=== PATIENT | male | born 1940 | race Caucasian/White ===

== ENCOUNTER → 2017-04-28 | Outpatient (CLI) | payer MEDICARE ==
--- NOTE | 2017-04-28 18:43 | PCVCIMAG ---
APPROVED REPORT Exam: Stress Echocardiogram Indication: Atrial Fibrillation, Hypertension, assess functional capacity Patient Location: Echo lab Stress Nurse: Gemma Arboleda RN Status: routine Ht: 6 ft 0 in HR: 103 bpm BP: 122/84 mmHg Rhythm: Atrial Fibrillation Procedure The patient underwent an Exercise Stress Test using the Alonzo Protocol. Blood pressure, heart rate, and EKG were monitored. An Echocardiogram was performed by slot technician in four stages in quad fashion. At peak stress, four selected images were obtained and placed side by side with resting images for comparison. Stress Test Details Stress Test: Exercise stress testing was performed using a Alonzo protocol. HR Resting HR: 103 bpmMax Heart Rate (APMHR): 145 bpm Max HR Achieved: 187 bpmTarget HR (85% APMHR): 123 bpm % of APMHR: 128 Recovery HR: 110 bpm HR response to stress: Normal HR response to stress BP Resting BP: 122/84 mmHg Max BP: 146/68 mmHg Recovery BP: 124/68 mmHg ECG Resting ECG: Atrial Fibrillation Stress ECG: Atrial Fibrillation ST Change: Normal Arrhythmia: Atrial fibrillation Recovery ECG: Atrial Fibrillation Recovery ST Change: Normal Recovery Arrhythmia: Atrial Fibrillation Clinical Reason for Termination: Maximal effort Exercise duration: 8 min 10 sec Highest Stage Achieved: Stage 3: 3.4 mph at 14% grade. Exercise capacity: 10.1 METs Overall Exercise Capacity for Age: Good Pre-Stress Echo The resting Echocardiogram showed normal left ventricular contractility with an estimated Ejection Fraction of about 55%. Normal wall motion in all segments on baseline images. Post-Stress Echo The stress Echocardiogram showed normal left ventricular contractility with an estimated Ejection Fraction of about 65%. Normal augmentation of wall motion in all segments on post stress images. Clinical No clinical or ECG evidence for ischemia. Conclusion Clinical Response: Non-ischemic Exercise Capacity: Average Stress ECG Response: Non-ischemic Stress Echo Images: Non-ischemic The left ventricle is normal in size and wall thickness in both the rest and stress images. Mild-moderate mitral regurgitation with biatrial enlargement. Other Information Study Quality: Adequate <Conclusion> The left ventricle is normal in size and wall thickness in both the rest and stress images. Mild-moderate mitral regurgitation with biatrial enlargement.
== END | disposition home or self-care (01) ==
LOC: PCVCIMAG 13:08
PROVIDERS: ATTEND Internal Medicine Cardiovascular Disease
DX: I34.0 Nonrheumatic mitral (valve) insufficiency (principal); I10 Essential (primary) hypertension; I42.9 Cardiomyopathy, unspecified; I48.2 Chronic atrial fibrillation; E78.5 Hyperlipidemia, unspecified
CPT/HCPCS: 93325; 93351

== ENCOUNTER → 2017-11-03 | Outpatient (CLI) | payer MEDICARE | END | disposition home or self-care (01) | LOC: PCVCCLINIC 08:32 | DX: I48.91 Unspecified atrial fibrillation (principal); I10 Essential (primary) hypertension; E78.00 Pure hypercholesterolemia, unspecified; I42.9 Cardiomyopathy, unspecified; I05.9 Rheumatic mitral valve disease, unspecified; R94.31 Abnormal electrocardiogram [ECG] [EKG]; Z79.899 Other long term (current) drug therapy | CPT/HCPCS: 80061; 93005 ==

== ENCOUNTER → 2018-06-15 | Outpatient (CLI) | payer MEDICARE ==
--- NOTE | 2018-06-15 10:58 | PCVCIMAG ---
APPROVED REPORT Study performed: 06/15/2018 09:05:19 EXAM: Comprehensive 2D, Doppler, and color-flow Echocardiogram Patient Location: Echo lab Status: routine BSA: 2.22 HR: 84 bpmBP: 140/100 mmHg Rhythm: Atrial Fibrillation Other Information Study Quality: Adequate Risk Factors: Cardiac Risk Factors: HTN, Hyperlipidemia Indications Mitral Valve Disease 2D Dimensions IVSd: 12.70 (7-11mm)LVOT Diam: 20.80 (18-24mm) LVDd: 43.53 mm PWd: 10.01 (7-11mm)Ascending Ao: 41.58 (22-36mm) LVDs: 42.48 (25-40mm) Left Atrium: 37.10 (27-40mm) Aortic Root: 34.98 mm LV Single Plane 4CH: 38.90 % LV Single Plane 2CH: 52.97 % Biplane EF: 47.1 % Volumes Left Atrial Volume (Systole) Single Plane 4CH: 68.39 mLSingle Plane 2CH: 81.69 mL LA ESV Index: 38.00 mL/m2 Aortic Valve AoV Peak Aidan.: 0.90 m/s AO Peak Gr.: 4.00 mmHgLVOT Max P.57 mmHg LVOT Max V: 0.80 m/s JANAK Vmax: 3.03 cm2 Mitral Valve E/A Ratio: 1.0 MV E Max Aidan.: 0.87 m/s MV A Aidan.: 0.89 m/s Pulmonary Valve PV Peak Gr.: 1.43 mmHg Tricuspid Valve TR Peak Aidan.: 2.07 m/s TR Peak Gr.: 17.07 mmHg Left Ventricle The left ventricle is normal size. Regional wall motion is normal. There is normal left ventricular wall thickness. Left ventricular systolic function is mildly decreased. LVEF is 45-50%.global hypo This study is not technically sufficient to allow evaluation of the LV diastolic function due to atrial fibrillation. Right Ventricle The right ventricle is normal size. The right ventricular systolic function is normal. Atria Left atrium is mildly dilated. Right atrium is mildly dilated. Aortic Valve The aortic valve is normal in structure. No aortic regurgitation is present. There is no aortic valvular stenosis. Mitral Valve The mitral valve is normal in structure. Moderate mitral regurgitation. No evidence of mitral valve stenosis. Tricuspid Valve The tricuspid valve is normal in structure. Trace tricuspid regurgitation. Pulmonary artery pressure is 24mmHg. Pulmonic Valve The pulmonary valve is normal in structure. There is no pulmonic valvular regurgitation. Great Vessels The aortic root is normal in size. The ascending aorta is borderline dilated measuring 4.2cm. IVC is normal in size and collapses >50% with inspiration. Pericardium There is no pericardial effusion. <Conclusion> The left ventricle is normal size. Left ventricular systolic function is mildly decreased. LVEF is 45-50%.global hypo This study is not technically sufficient to allow evaluation of the LV diastolic function due to atrial fibrillation. The right ventricle is normal size. Left atrium is mildly dilated. Right atrium is mildly dilated. The aortic valve is normal in structure. Moderate mitral regurgitation. Trace tricuspid regurgitation. Pulmonary artery pressure is 24mmHg. The aortic root is normal in size. There is no pericardial effusion.
== END | disposition home or self-care (01) ==
LOC: PCVCIMAG 10:31
PROVIDERS: ATTEND Internal Medicine Cardiovascular Disease
DX: I05.1 Rheumatic mitral insufficiency (principal); I48.2 Chronic atrial fibrillation; I42.9 Cardiomyopathy, unspecified; I10 Essential (primary) hypertension; E78.5 Hyperlipidemia, unspecified; E78.00 Pure hypercholesterolemia, unspecified; Z79.899 Other long term (current) drug therapy
CPT/HCPCS: 80061; 93005; 93306; G0463

== ENCOUNTER → 2019-03-13 | Outpatient (CLI) | payer MEDICARE ==
[~2019-03-13] MED LIST: REGADENOSON 0.4 MG/5 ML DISP.SYRIN. IV ONE
--- NOTE | 2019-03-13 13:00 | PCVCIMAG ---
APPROVED REPORT Imaging Protocol: Rest Tc-99m/Stress Tc-99m 1 day Study performed: 03/13/2019 09:55:49 Indication: AFIB, CM Patient Location: Out-Patient Stress Nurse: Inez Puckett RN CT Tech:CHACE RustMT Ht: 6 ft 0 in Wt: 220 lbs BSA: 2.22 m2 HR: 76 bpm BP: 136/88 mmHg BMI: 29.8 Rhythm: Atrial Fibrillation Medical History Medical History: Hyperlipidemia, HTN Medications: Eliquis, Carvedilol, Losartan, Zantac, Flomax, Chlorthalidone Allergies: No known drug allergies Cardiac Risk Factors: Age Pretest Chest Pain Characteristics: No chest pain Exercise History: Physically active Meds Held (24 hrs): Carvedilol Resting Data Rest SPECT myocardial perfusion imaging was performed in supine position 45 minutes following the intravenous injection of 0915 mCi of Tc-99m Sestamibi. Time of rest injection: Date: 03/13/2019 Administration Route: IV Administration Site: Right Arm Pharmacologic Stress Pharmacologic stress test was performed by injecting Regadenoson 0.4 mg IV push over 10-15 seconds immediately followed by the intravenous injection of 32.7 mCi of Tc-99m Sestamibi. Time of stress injection: 1040 Date: 03/13/2019 Administration Route: IV Administration Site: Right Arm Gated Stress SPECT was performed 45 minutes after stress injection. The images were gated to evaluate regional wall motion and calculate left ventricular ejection fraction. Stress Test Details Stress Test: Pharmacologic stress testing performed using 0.4 mg of regadenoson per 5 mL given IV over 10 seconds. Reason for pharmacologic stress test: physical limitation, back injury. HRMax Heart Rate (APMHR): 143 bpm Resting HR: 76 bpmTarget HR (85% APMHR): 121 bpm Max HR Achieved: 90 bpm % of APMHR: 62 Recovery HR: 101 bpm BP Resting BP: 136/88 mmHg Max BP: 118/66 mmHg Recovery BP: 127/76 mmHg ECG Resting ECG: Atrial Fibrillation Stress ECG: Atrial Fibrillation ST Change: None Maximum ST Deviation: 0 mm Arrhythmia: None Recovery ECG: Atrial Fibrillation Recovery ST Change: None Recovery ST Deviation: 0 mm Recovery Arrhythmia: None Clinical Reason for Termination: Completed protocol Stress Symptoms: Lightheaded Symptoms resolved with caffeine. Stress ECG Conclusion ECG: Non-ischemic Clinical: Non-ischemic Study Quality Study: Good Study Data Post stress, the left ventricular ejection was 67%.. SSS: 2 SRS: 2 SDS: 1 TID = 1.06. Perfusion No evidence of stress induced ischemia or prior myocardial infarction. Wall Motion Normal left ventricular size and function with no regional wall motion abnormalities. Nuclear Conclusion No evidence of stress induced ischemia or prior myocardial infarction. Normal left ventricular size and function with no regional wall motion abnormalities. Post stress, the left ventricular ejection was 67%. No prior study available for comparison. Interpreted by: Elijah Person MD Electronically Approved: 03/13/2019 10:15:07 <Conclusion> ECG: Non-ischemic Clinical: Non-ischemic
== END | disposition home or self-care (01) ==
LOC: PCVCIMAG 09:08
PROVIDERS: ATTEND Internal Medicine Cardiovascular Disease
DX: I48.2 Chronic atrial fibrillation (principal); I10 Essential (primary) hypertension; E78.5 Hyperlipidemia, unspecified
CPT/HCPCS: 78452; 93017; A9500; J2785

== ENCOUNTER → 2019-08-10 | Outpatient (CLI) | payer MEDICARE ==
--- NOTE | 2019-08-10 19:15 | PCVCIMAG ---
APPROVED REPORT Study performed: 08/10/2019 13:49:36 EXAM: Limited 2D Echocardiogram Patient Location: Echo lab Room #: [id number]: routine BSA: 0.80 HR: 74 bpmBP: 118/74 mmHg Rhythm: Atrial Fibrillation Other Information Study Quality: Adequate Risk Factors: Cardiac Risk Factors: HTN, Hyperlipidemia Indications Atrial Fibrillation Cardiomyopathy Hypertension/HDD 2D Dimensions IVSd: 12.81 (7-11mm) LVDd: 55.17 mm PWd: 9.81 (7-11mm)Ascending Ao: 39.87 (22-36mm) LVDs: 37.73 (25-40mm) Left Atrium: 35.60 (27-40mm) Aortic Root: 32.80 mm LV Single Plane 4CH: 51.38 % LV Single Plane 2CH: 57.07 % Biplane EF: 54.0 % Volumes Left Atrial Volume (Systole) Single Plane 4CH: 77.58 mLSingle Plane 2CH: 78.26 mL Tricuspid Valve TR Peak Aidan.: 2.09 m/sRAP Estimate: 10.00 mmHg TR Peak Gr.: 17.52 mmHg PA Pressure: 28.00 mmHg Left Ventricle The left ventricle is normal size. There is normal LV segmental wall motion. There is normal left ventricular wall thickness. The left ventricular systolic function is normal. The left ventricular ejection fraction is within the normal range. LVEF is 50-55%. Right Ventricle Right ventricle is dilated. Right ventricle is hypokinetic. Atria Left atrium is severely dilated. Right atrium is dilated. Aortic Valve The Aortic valve is sclerotic. Mitral Valve The mitral valve is normal in structure. Tricuspid Valve The tricuspid valve is normal in structure. Trace to mild tricuspid regurgitation. Pulmonary artery pressure is 28 mmHg. Pulmonic Valve The pulmonary valve is normal in structure. Great Vessels The aortic root is normal in size. Ascending aortic is mildly dilated and measures 4.0 cm. IVC is dilated and collapses >50% with inspiration. Pericardium There is no pericardial effusion. <Conclusion> The left ventricle is normal size. LVEF is 50-55%. Right ventricle is dilated. Right ventricle is hypokinetic. Left atrium is severely dilated. Right atrium is dilated. The Aortic valve is sclerotic. The mitral valve is normal in structure. Ascending aortic is mildly dilated and measures 4.0 cm. There is no pericardial effusion.
== END | disposition home or self-care (01) ==
LOC: PCVCIMAG 13:45
PROVIDERS: ATTEND Internal Medicine Cardiovascular Disease
DX: I35.8 Other nonrheumatic aortic valve disorders (principal); I48.91 Unspecified atrial fibrillation; I42.9 Cardiomyopathy, unspecified; I10 Essential (primary) hypertension; E78.5 Hyperlipidemia, unspecified; E78.00 Pure hypercholesterolemia, unspecified; I05.9 Rheumatic mitral valve disease, unspecified; D68.59 Other primary thrombophilia; Z79.899 Other long term (current) drug therapy
CPT/HCPCS: 36415; 80061; 93005; 93308; G0463